=== PATIENT | female | born 1980 | race African-American/Black ===

== ENCOUNTER → 2020-09-29 | Outpatient (CLI) | payer OTHER ==
[~2020-09-29] MED LIST: IBUPROFEN 600600 M1; MULTIVITAMINS PO; NORCO 5-325 TA1 EACH PO; ORTHO TRI-CYCL1 EACH PO
== END ==
LOC: BC 15:43
PROVIDERS: ATTEND Nurse Practitioner
DX: N63.20 Unspecified lump in the left breast, unspecified quadrant (principal); N60.11 Diffuse cystic mastopathy of right breast; Z88.5 Allergy status to narcotic agent; Z88.8 Allergy status to other drugs, medicaments and biological substances

== ENCOUNTER → 2021-06-26 | Outpatient (CLI) | payer OTHER | LOC: ULTRA 10:29 | PROVIDERS: ATTEND Nurse Practitioner | DX: M79.621 Pain in right upper arm (principal) ==